=== PATIENT | male | born 1950 | race Caucasian/White ===

== ENCOUNTER 2020-06-20 13:55 | Inpatient (IN) | payer MEDICAID ==
[~2020-06-20] VITALS: Ht 170.2 cm; Wt 52.2 kg
--- NOTE | 2020-06-20 13:55 | NUR ---
PT BIBRA 60 FROM 4 SEASONS C/O WEAKNESS AND FAILURE TO THRIVE FOR3 DAYS. PT IS AAOX3, NOT IN RESPIRATORY DISTRESS, HOOKED TO AUDIT LEAD, KEPT RESTED AND COMFORTABLE. WILL CONTINUE TO MONITOR.
--- NOTE | 2020-06-20 14:50 | NUR ---
IV LINE ESTABLISHED BLOOD DRAWN AND SENT TO LAB.
--- NOTE | 2020-06-20 15:02 | NUR ---
URINE SPECIMEN COLLECTED AND SENT TO LAB.
[2020-06-20 15:06] LABS: BASOPHILS % (AUTO) 0.4 % (0.0-2.0); EOSINOPHILS % (AUTO) 0.5 % (0.0-6.0); HEMATOCRIT 28 % (39-51); HEMOGLOBIN 8.5 g/dL (13.5-17.5); LYMPHOCYTES # (AUTO) 1.3 /CMM (0.8-4.8); LYMPHOCYTES % (AUTO) 11.8 % (20.0-44.0); MEAN CORPUSCULAR HGB CONC 31 g/dl (31.0-36.0); MEAN CORPUSCULAR VOLUME 74 fL (80-96); MONOCYTES # (AUTO) 0.9 /CMM (0.1-1.30); MONOCYTES % (AUTO) 8.1 % (2.0-12.0); NEUTROPHILS # (AUTO) 8.4 /CMM (1.8-8.9); NEUTROPHILS % (AUTO) 79.2 % (43.0-81.0); PLATELET COUNT (AUTO) 630 /CMM (150-450); RED BLOOD CELL COUNT(AUTO) 3.71 MIL/uL (4.5-6.0); WHITE BLOOD COUNT (AUTO) 10.6 K/uL (4.3-11.0)
[2020-06-20 15:06] LABS: BILIRUBIN,URINE Negative (NEGATIVE); COLOR,URINE YELLOW (YELLOW); LEUKOCYTE ESTERASE ,URINE Large (NEGATIVE); NITRITE, URINE Positive (NEGATIVE); PH,URINE 5.5 (5.0-8.0); PROTEIN,URINE 30 mg/dl (NEGATIVE); UGLUCOSE Negative (NEGATIVE); UROBILINOGEN,URINE 0.2 EU/dL (0.2)
[2020-06-20 15:16] LABS: BACTERIA,URINE Moderate /HPF (None Seen); SQUAMOUS EPITHELIAL CELL,UR 0-2 /HPF (None Seen); WBC,URINE TOO NUMEROUS TO COUN /HPF (0-3)
[2020-06-20 15:19] LABS: ALANINE AMINOTRANSFERASE 18 U/L (12-78); ALBUMIN 2.2 g/dL (3.4-5.0); ALKALINE PHOSPHATASE 136 U/L (46-116); ASPARTATE AMINOTRANSFERASE 39 U/L (15-37); BILIRUBIN,DIRECT 0.2 mg/dL (0.0-0.2); BILIRUBIN,TOTAL 0.5 mg/dL (0.2-1.0); CALCIUM, SERUM 10.6 mg/dL (8.5-10.1); CARBON DIOXIDE 26 mmol/L (21-32); CHLORIDE 96 mmol/L (98-107); GLUCOSE 98 mg/dL (74-106); SODIUM SERUM 132 mmol/L (136-145); TOTAL PROTEIN, SERUM 9.6 g/dL (6.4-8.2); UREA NITROGEN, BLOOD 45 mg/dL (7-18)
[2020-06-20 15:20] LABS: CALCIUM OXALATE CRYSTALS,UR Rare /HPF (None Seen)
[2020-06-20 15:48] LABS: BILIRUBIN,URINE Negative (NEGATIVE); COLOR,URINE DARK YELLOW (YELLOW); LEUKOCYTE ESTERASE ,URINE Small (NEGATIVE); NITRITE, URINE Negative (NEGATIVE); PH,URINE 5.5 (5.0-8.0); PROTEIN,URINE 30 mg/dl (NEGATIVE); UGLUCOSE Negative (NEGATIVE); UROBILINOGEN,URINE 0.2 EU/dL (0.2)
[2020-06-20 15:57] LABS: BACTERIA,URINE Few /HPF (None Seen); SQUAMOUS EPITHELIAL CELL,UR Few /HPF (None Seen); WBC,URINE 21-50 /HPF (0-3); YEAST,URINE Few /HPF (None Seen)
[2020-06-20] MEDS ORDERED: IV NS 0.9% 1,000 ML BAG IV ONE (16:00)
[2020-06-20] MEDS ORDERED: MEROPENEM 1,000 MG in IV NS 0.9% 100 ML IV ONE (16:00)
[2020-06-20] MEDS ORDERED: SENN-261 PO (16:03)
[2020-06-20] MEDS ORDERED: TRAM50TA2 PO (16:03)
[2020-06-20] MEDS ORDERED: BACL10TA PO (16:03)
[2020-06-20] MEDS ORDERED: ACET-2605 PO (16:03)
[2020-06-20] MEDS ORDERED: ASCO-352 PO (16:03)
[2020-06-20] MEDS ORDERED: FERR325T23 PO (16:03)
[2020-06-20] MEDS ORDERED: GABA-532 PO (16:03)
[2020-06-20] MEDS ORDERED: AMIN30LI2 PO (16:03)
[2020-06-20] MEDS ORDERED: BISA10SU11 RC (16:03)
[2020-06-20] MEDS ORDERED: ATOR40TA PO (16:03)
[2020-06-20] MEDS ORDERED: MULT-447 PO (16:03)
[2020-06-20] MEDS ORDERED: MAGN400O6 PO (16:03)
[2020-06-20] MEDS ORDERED: MIDO10TA PO (16:03)
[2020-06-20] MEDS ORDERED: ACET-868 PO (16:03)
[2020-06-20] MEDS ORDERED: MELA3TAB41 PO (16:03)
[2020-06-20] MEDS ORDERED: NA P133E RC (16:03)
[2020-06-20] MEDS ORDERED: PANT40TA2 PO (16:03)
[2020-06-20] MEDS ORDERED: CRAN450C PO (16:03)
[2020-06-20] MEDS ORDERED: COLL30OI TP (16:09)
[2020-06-20] MEDS ORDERED: GENT3.5O4 TD (16:09)
--- NOTE | 2020-06-20 16:56 | NUR ---
Received bed number 115-1.
--- NOTE | 2020-06-20 17:08 | NUR ---
REPORT GIVEN TO LACIE HOLLINGSWORTH FOR CARL.
--- NOTE | 2020-06-20 17:08 | NUR ---
WITH ONGOING NORMAL SALINE 1L TRANSFUSING WELL.
[2020-06-20 17:30] VITALS: BP 124/84
[2020-06-20] MEDS ORDERED: MAGNESIUM HYDROXIDE 30 ML UDC PO PRN (17:30)
[2020-06-20] MEDS ORDERED: ONDANSETRON HCL/PF 4 MG/2 ML VIAL IVP PRN (17:30)
[2020-06-20] MEDS ORDERED: MAG HYDROX/AL HYDROX/SIMETH 30 ML UDC PO PRN (17:30)
[2020-06-20] MEDS ORDERED: Z GUARD REMEDY 2 OZ OINT TP PRN (17:30)
[2020-06-20] MEDS ORDERED: IV NS 0.9% 1,000 ML IV ONE (17:30)
[2020-06-20] MEDS ORDERED: HYDROCODONE/APAP 5/325MG TABLET PO PRN (17:30)
[2020-06-20] MEDS ORDERED: ZOLPIDEM TARTRATE 5 MG TABLET PO PRN (17:30)
[2020-06-20] MEDS ORDERED: BACLOFEN (10 MG) 10 MG TABLET PO PRN (17:30)
--- NOTE | 2020-06-20 17:30 | NUR ---
BULL FLOAT FINISHER NOTE RECEIVED PATIENT FROM LACIE MATTHEWS. WILL CONTINUE TO MONITOR FOR REMAINDER OF SHIFT.
[2020-06-20] MEDS: AZITHROMYCIN 500 MG in IV D5W 250 ML IV SCH (18:32)
[2020-06-20] MEDS: ENOXAPARIN SODIUM 40 MG/0.4 ML DISP.SYRIN SQ SCH (18:33)
--- NOTE | 2020-06-20 19:26 | NUR ---
RN CLOSING NOTE PATIENT IS IN BED WITH HOB AT SEMI FOWLERS POSITION. PATIENT IS AOX1-2. CURRENTLY ON ROOM AIR NO SIGNS OF LABORED BREATHING. CURRENTLY TACHY ON MONITOR 130S. SACRAL STAGE 4, R ANKLE ULCER, LEFT ANKLE ULCER, LEFT FOOT SKIN TEAR HAVE ALL BEEN NOTED AND HAD PICTURES TAKEN FOR CHART. RAC #[id number] IS PATENT, INTACT, AND HAS NO SIGNS OF INFILTRATION. [place] IS IN PLACE WITH CLOUDY URINE NOTED. BED IS LOCKED IN THE LOWEST POSITION, 3 GUARD RAILS RAISED, CALL GORDILLO WITHIN REACH, AND ALL HOSPITAL SAFETY PRECAUTIONS ARE BEING FOLLOWED. WILL ENDORSE TO SPECIALIZED DEVELOPER RN.
[2020-06-20 20:00] VITALS: BP 97/63
[2020-06-20] MEDS ORDERED: VANCOMYCIN 1 GM in IV D5W 250 ML IV SCH (20:00)
--- NOTE | 2020-06-20 20:30 | NUR ---
RN OPENING NOTE RECEIVED PATIENT IN BED RESTING ALERT ORIENTED X2 VERBALLY RESPONSIVE ON ROOM AIR O2:96% TACHYCARDIA HR: 131-[address] URINE CLOUDY AND YELLOW RUNNING BY GRAVITY,IV SITE IS ON RIGHT FOREARM AND RIGHT AC INTACT PATENT BED IN LOW POSITION AND LOCKED,CALL LIGHT WITHIN REACH,SAFETY MEASURE IMPLEMENT CONTINUE TO MONITOR
[2020-06-20] MEDS: ATORVASTATIN 40 MG TABLET PO SCH (21:09)
[2020-06-20] MEDS: IV NS 0.9% 1,000 ML IV PRN (21:20)
--- NOTE | 2020-06-20 22:00 | NUR ---
RN NOTE HR 131-135 AND LACTIC ACID IS 3.[address] LANGE MADE AWARE NO NEW ORDER CONTINUE TO MONITOR
[2020-06-20] MEDS: MEROPENEM 1 G in IV NS 0.9% 100 ML IV SCH (22:18)
[2020-06-21] VITALS: BP 106/67
[2020-06-21 04:00] VITALS: BP 91/52
[2020-06-21] MEDS: MEROPENEM 1 G in IV NS 0.9% 100 ML IV SCH ×3 (04:08→20:19)
[2020-06-21 05:58] LABS: BASOPHILS # (AUTO) 0.1 /CMM (0.0-0.2); BASOPHILS % (AUTO) 0.9 % (0.0-2.0); EOSINOPHILS % (AUTO) 0.9 % (0.0-6.0); HEMATOCRIT 24 % (39-51); HEMOGLOBIN 7.5 g/dL (13.5-17.5); LYMPHOCYTES # (AUTO) 0.9 /CMM (0.8-4.8); LYMPHOCYTES % (AUTO) 11.8 % (20.0-44.0); MEAN CORPUSCULAR HGB CONC 32 g/dl (31.0-36.0); MEAN CORPUSCULAR VOLUME 73 fL (80-96); MONOCYTES # (AUTO) 0.6 /CMM (0.1-1.30); MONOCYTES % (AUTO) 8.5 % (2.0-12.0); NEUTROPHILS # (AUTO) 5.6 /CMM (1.8-8.9); NEUTROPHILS % (AUTO) 77.9 % (43.0-81.0); PLATELET COUNT (AUTO) 457 /CMM (150-450); RED BLOOD CELL COUNT(AUTO) 3.25 MIL/uL (4.5-6.0); WHITE BLOOD COUNT (AUTO) 7.2 K/uL (4.3-11.0)
[2020-06-21 06:18] LABS: CALCIUM, SERUM 9.2 mg/dL (8.5-10.1); CREATININE 0.7 mg/dL (0.6-1.3); MAGNESIUM 1.8 mg/dL (1.8-2.4)
--- NOTE | 2020-06-21 06:45 | NUR ---
RN CLOSING NOTE PATIENT REMAINS ON ALERT ORIENTED X2 VERBALLY RESPONSIVE ON ROOM AIR O2:99% NO SOB NOT ACUTE DISTRESS NOTED,IV SITE IS ON RIGHT FOREARM AND RIGHT AC INTACT PATENT ON IV HYDRATION NORMAL SALINE 0.9% 75CC/HR [place] CATHETER IN PLACE URINE DRAINING YELLOW/CLOUDY,AL DUE MEDS GIVEN MD ORDERED,KEPT CLEAN AND DRY ALL THE TIME,KEPT COMFORTABLE ALL NEEDS MET,ENDORSE NEXT COMING SHIFT FOR CONTINUATION OF CARE.
[2020-06-21 07:25] LABS: POTASSIUM 3.5 mmol/L (3.5-5.1)
[2020-06-21 08:00] VITALS: BP 92/62
[2020-06-21] MEDS: GABAPENTIN 300 MG CAPSULE PO SCH ×2 (08:46→16:22)
[2020-06-21] MEDS: FERROUS SULFATE (325 MG) 325 MG/TAB TABLET PO SCH (08:46)
[2020-06-21] MEDS: PANTOPRAZOLE 40 MG TABLET.DR PO SCH (08:46)
[2020-06-21] MEDS: THERAHONEY GEL 1.5 OZ TUBE TP SCH (08:47)
[2020-06-21] MEDS: ASCORBIC ACID 500 MG TABLET PO SCH (08:47)
[2020-06-21] MEDS: PROSOURCE / PROSTAT (PYXIS) 30 ML UDC PO SCH ×2 (08:47→16:24)
[2020-06-21] MEDS: MULTIVIT W/MINERALS 1 TAB TABLET PO SCH (08:47)
[2020-06-21] MEDS: MIDODRINE HCL (5MG) 5 MG TABLET PO SCH ×2 (08:49→16:24)
[2020-06-21] MEDS: VANCOMYCIN HCL 0.75 GM in IV D5W 250 ML IV SCH ×2 (09:04→19:38)
[2020-06-21 11:27] LABS: LYMPHOCYTES % (MANUAL) 13 % (16-48); MONOCYTES % (MANUAL) 5 % (0-11.0); NEUTROPHILS % (MANUAL) 82 (42-76)
[2020-06-21] MEDS: IV NS 0.9% 1,000 ML IV PRN (14:24)
[2020-06-21] MEDS ORDERED: IV NS 0.9% 250 ML IV ONE (15:21)
[2020-06-21] MEDS ORDERED: IOHEXOL-300 100 ML VIAL IV ONE (15:21)
--- NOTE | 2020-06-21 15:36 | NUR ---
PATIENT TRANSPORTED TO CT FOR CT CHEST WITH CONTRAST. PATIENT COVID PCR TEST STILL PENDING, CT NOTIFIED AND AWARE.
[2020-06-21 16:00] VITALS: BP 98/63
--- NOTE | 2020-06-21 17:24 | NUR ---
PER ORACLE FINANCIAL APPLICATION DEVELOPER, PATIENT'S SNF CONSIDERING PEG PLACEMENT HERE AT HOSPITAL, OR HOSPICE CARE DEPENDING ON THE STATUS OF THE PATIENT. PATIENT AT BASELINE IN SNF AOX3-4, NOW CURRENTLY AO X 1-2. PER ORACLE FINANCIAL APPLICATION DEVELOPER, PATIENT HAS NO POINT OF CONTACT, AND IS SELF-RESPONSIBLE. WILL ENDORSE TO ONCOMING RN TO RELAY TO MD IN THE AM.
[2020-06-21] MEDS: ENSURE ENLIVE 237 ML LIQUID (VANILLA) PO SCH (17:38)
[2020-06-21] MEDS: AZITHROMYCIN 500 MG in IV D5W 250 ML IV SCH (17:38)
--- NOTE | 2020-06-21 18:06 | NUR ---
LAB CALLED TO NOTIFY OF PCR POSITIVE RESULT. RESULT RELAYED TO MD PIMENTEL, ALONG WITH RESULTED CT CHEST WITH IV CONTRAST REPORT, AND CASE MANAGEMENT REPORT OF POSSIBLE PEG/HOSPICE CONSIDERATION.
--- NOTE | 2020-06-21 18:33 | NUR ---
PATIENT REMAINS IN BED, NO ACUTE CHANGES. ALL SAFETY MEASURES IN PLACE, WOUND CARE COMPLETED, PENDING WOUND CONSULT. PATIENT CONSUMED APPROXIMATELY 50% OF MEALS THIS SHIFT. WILL ENDORSE ALL NEEDS TO ONCOMING RN
--- NOTE | 2020-06-21 19:00 | NUR ---
RN OPENING NOTE RECEIVED PATIENT IN BED RESTING ALERT ORIENTED X2 VERBALLY RESPONSIVE NO SOB NOT ACUTE DISTRESS NOTED ON ROOM AIR O2:96% D[place] IN PLACE URINE DRAINING YELLOW/CLOUDY IV SITE IS ON RIGHT FOREARM AND RIGHT AC INTACT PATENT IV HYDRATION NS O.9% RUNNING @ 75CC/HR,BED IN LOW POSITON AND LOCKED,SAFETY MEASURE IMPLEMENT,CONTINUE TO MONITOR.
--- NOTE | 2020-06-21 19:40 | NUR ---
RN NOTE RECEIVED CALL FROM LAB PATIENT IS GRAM POSITIVE COCCI IN CLUSTER,NOTIFIED MD CONTINUE TO MONITOR.
[2020-06-21 20:00] VITALS: BP 98/58
[2020-06-21] MEDS: ENOXAPARIN SODIUM 40 MG/0.4 ML DISP.SYRIN SQ SCH (20:20)
[2020-06-21] MEDS: ATORVASTATIN 40 MG TABLET PO SCH (21:01)
[2020-06-22] VITALS: BP 99/60
[2020-06-22] MEDS: IV NS 0.9% 1,000 ML IV PRN ×2 (03:06→21:03)
[2020-06-22 04:00] VITALS: BP 97/55
[2020-06-22] MEDS: MEROPENEM 1 G in IV NS 0.9% 100 ML IV SCH ×3 (04:07→21:04)
[2020-06-22 06:23] LABS: BASOPHILS % (AUTO) 0.4 % (0.0-2.0); EOSINOPHILS % (AUTO) 1.8 % (0.0-6.0); LYMPHOCYTES % (AUTO) 16.6 % (20.0-44.0); MEAN CORPUSCULAR HGB CONC 31 g/dl (31.0-36.0); MEAN CORPUSCULAR VOLUME 74 fL (80-96); MONOCYTES # (AUTO) 0.5 /CMM (0.1-1.30); MONOCYTES % (AUTO) 8.9 % (2.0-12.0); NEUTROPHILS # (AUTO) 4.3 /CMM (1.8-8.9); NEUTROPHILS % (AUTO) 72.3 % (43.0-81.0); PLATELET COUNT (AUTO) 383 /CMM (150-450); RED BLOOD CELL COUNT(AUTO) 2.75 MIL/uL (4.5-6.0); WHITE BLOOD COUNT (AUTO) 5.9 K/uL (4.3-11.0)
[2020-06-22 06:50] LABS: BILIRUBIN,TOTAL 0.4 mg/dL (0.2-1.0); CALCIUM, SERUM 8.6 mg/dL (8.5-10.1); CREATININE 0.5 mg/dL (0.6-1.3); MAGNESIUM 1.4 mg/dL (1.8-2.4); PHOSPHORUS 1.5 mg/dL (2.5-4.9); TOTAL PROTEIN, SERUM 6.3 g/dL (6.4-8.2)
--- NOTE | 2020-06-22 06:50 | NUR ---
RN NOTE RECEIVED CRITICAL LAB RESULTS POSASSUIM 2.7 AND ALBUMIN 1.[address] BARBER MADE AWARE CONTINUE TO MONITOR.
--- NOTE | 2020-06-22 06:52 | NUR ---
RN NOTE FOR CRITICAL LAB RESULTS POTASSIUM 2.7 AND ALBUMIN 1.4 ENDORSE MORNING SHIFT FOR FOLLOW UP.
[2020-06-22 06:57] LABS: POTASSIUM 2.7 mmol/L (3.5-5.1)
[2020-06-22 06:58] LABS: ALBUMIN 1.4 g/dL (3.4-5.0)
--- NOTE | 2020-06-22 07:01 | NUR ---
RN CLOSING NOTE PATIENT REMAINS ON ALERT ORIENTED X2 VERBALLY RESPONSIVE ON ROOM AIR NO SOB NOT ACUTE DISTRESS NOTED,O2:99% IV SITE IS ON RIGHT FOREARM AND RIGHT AC INTACT PATENT [place] CATHETER IN PLACE,URINE DRAINING CLOUDY AND YELLOW,IV HYDRATION IS RUNNING NS 0.9% @ 75CC/HR ALL DUE MEDS GIVEN MD ORDERED KEPT CLEAN AND DRY ALL THE TIME,KEPT COMFORTABLE ALL NEEDS MET ENDORSE NEXT COMING SHIFT FOR CONTINUATION OF CARE.
[2020-06-22 07:26] LABS: HEMATOCRIT 20 % (39-51); HEMOGLOBIN 6.4 g/dL (13.5-17.5)
--- NOTE | 2020-06-22 07:35 | NUR ---
RN NOTE NOTIFIED DR. PIMENTEL OF CRITICAL LAB VALUES H/H 6.4/20, POTASSIUM 2.7, AND ALBUMIN 1.4.
--- NOTE | 2020-06-22 07:45 | NUR ---
RN OPENING NOTE PATIENT IS IN BED WITH HOB AT SEMI FOWLERS POSITION. PATIENT IS CURRENTLY ON ROOM AIR WITH NO SIGNS OF LABORED BREATHING. PATIENT IS AOX2. [place] CATHETER IS IN PLACE. SACRAL STAGE 4, L/R HEEL WOUNDS, AND LEFT LEG SKIN TEAR HAVE BEEN NOTED. R FOREARM AND RAC ARE PATENT, INTACT, AND HAVE NO SIGNS OF LABORED BREATHING. BED IS LOCKED IN THE LOWEST POSITION, 3 GUARD RAILS RAISED, CALL GORDILLO WITHIN REACH, AND ALL HOSPITAL SAFETY PRECAUTIONS ARE BEING FOLLOWED. WILL CONTINUE TO MONITOR THROUGHOUT SHIFT.
[2020-06-22 08:00] VITALS: BP 97/64
[2020-06-22] MEDS: PROSOURCE / PROSTAT (PYXIS) 30 ML UDC PO SCH ×2 (08:04→17:00)
[2020-06-22] MEDS: PANTOPRAZOLE 40 MG TABLET.DR PO SCH (08:04)
[2020-06-22] MEDS: ASCORBIC ACID 500 MG TABLET PO SCH (08:05)
[2020-06-22] MEDS: MIDODRINE HCL (5MG) 5 MG TABLET PO SCH ×2 (08:05→16:22)
[2020-06-22] MEDS: MULTIVIT W/MINERALS 1 TAB TABLET PO SCH (08:05)
[2020-06-22] MEDS: FERROUS SULFATE (325 MG) 325 MG/TAB TABLET PO SCH (08:05)
[2020-06-22] MEDS: ENSURE ENLIVE 237 ML LIQUID (VANILLA) PO SCH ×3 (08:06→16:22)
[2020-06-22] MEDS: GABAPENTIN 300 MG CAPSULE PO SCH ×2 (08:06→16:22)
[2020-06-22] MEDS: POTASSIUM CL. PREMIX PERIPHER. 50 ML IV SCH ×8 (08:06→18:45)
[2020-06-22] MEDS: THERAHONEY GEL 1.5 OZ TUBE TP SCH (09:00)
[2020-06-22 09:06] LABS: EOSINOPHILS % (MANUAL) 5 % (0-4); LYMPHOCYTES % (MANUAL) 19 % (16-48); MONOCYTES % (MANUAL) 8 % (0-11.0); NEUTROPHILS % (MANUAL) 68 (42-76)
--- NOTE | 2020-06-22 09:12 | NUR ---
WOUND CARE CONSULT: REVIEWED CHART, NURSING DOCUMENTATION AND PHOTOS WHICH INDICATE STAGE 4 SACRAL ULCER AND LOWER EXTREMITY WOUNDS, PRESENT ON ADMISSION. RECOMMEND SURGICAL AND DPM CONSULTS. DR HOFFMAN AND DR WATTS NOTIFIED OF CONSULT REQUESTS. RECOMMENDATIONS MADE FOR SKIN PROTECTION. DISCUSSED WITH NURSING STAFF. FIRST STEP LOW AIRLOSS MATTRESS IS ON ORDER. MD IN AGREEMENT WITH PLAN OF CARE.
[2020-06-22] MEDS: VANCOMYCIN HCL 0.75 GM in IV D5W 250 ML IV SCH ×2 (10:27→19:54)
[2020-06-22 11:10] LABS: HEMOGLOBIN 7.1 g/dL (13.5-17.5)
[2020-06-22] MEDS: Magnesium 1GM/D5W 100ML PREMIX 100 ML IV SCH ×4 (11:28→15:48)
[2020-06-22] MEDS ORDERED: K PHOS NEUTRAL 250 MG TABLET PO ONE (11:30)
[2020-06-22 12:00] VITALS: BP 85/55
--- NOTE | 2020-06-22 13:16 | NUR ---
TELE NOTE PATIENT IS COMPLAINING OF BURNING AT IV SITE WITH POTASSIUM RUNNING. LOWERED RATE TO 25 ML/HR WILL CONTINUE TO MONITOR.
[2020-06-22 16:00] VITALS: BP 126/60
[2020-06-22 16:54] LABS: OCCULT BLOOD STOOL NEGATIVE (NEGATIVE)
[2020-06-22] MEDS: DAKINS QUARTER STRENGTH (0.125%) 480 ML BOTTLE TOP SCH (17:21)
[2020-06-22] MEDS: AZITHROMYCIN 500 MG in IV D5W 250 ML IV SCH (18:03)
--- NOTE | 2020-06-22 19:08 | NUR ---
RN CLOSING NOTE PATIENT IS IN BED WITH HOB AT SEMI FOWLERS POSITION. PATIENT IS CURRENTLY ON ROOM AIR WITH NO SIGNS OF LABORED BREATHING. PATIENT IS AOX2. [place] CATHETER IS IN PLACE. SACRAL STAGE 4, L/R HEEL WOUNDS, AND LEFT LEG SKIN TEAR HAVE BEEN NOTED. R FOREARM AND RAC ARE PATENT, INTACT, AND HAVE NO SIGNS OF LABORED BREATHING. ALL ASSIGNED MEDS GIVEN AND PATIENT REMAINED STABLE THROUGHOUT SHIFT. BED IS LOCKED IN THE LOWEST POSITION, 3 GUARD RAILS RAISED, CALL GORDILLO WITHIN REACH, AND ALL HOSPITAL SAFETY PRECAUTIONS ARE BEING FOLLOWED. WILL ENDORSE TO COMPOUNDER FLAVORINGS RN.
[2020-06-22 20:00] VITALS: BP 121/66
--- NOTE | 2020-06-22 20:00 | NUR ---
RN NOTE RECEIVED PT IN BED A/O X2, PT IS ON RA SATING 99%, PT HAS UNLABORED BREATHING, SAFETY MEASURES IN PLACE.
[2020-06-22] MEDS: ATORVASTATIN 40 MG TABLET PO SCH (21:18)
[2020-06-23] VITALS (9 sets, daily range): BP systolic 89–124; BP diastolic 50–81
[2020-06-23] MEDS: MEROPENEM 1 G in IV NS 0.9% 100 ML IV SCH ×3 (05:21→20:31)
[2020-06-23 07:04] LABS: CALCIUM, SERUM 7.8 mg/dL (8.5-10.1); CREATININE 0.4 mg/dL (0.6-1.3); MAGNESIUM 1.6 mg/dL (1.8-2.4); PHOSPHORUS 1.4 mg/dL (2.5-4.9); POTASSIUM 3.3 mmol/L (3.5-5.1)
--- NOTE | 2020-06-23 07:29 | NUR ---
RN NOTE REPORT GIVEN TO ONCOMING SHIFT FOR CARL.
[2020-06-23 08:06] LABS: CREATININE KINASE (CK),MB 2.6 ng/mL (0.0-10.4); PTH, INTACT 17 pg/mL (15-65)
[2020-06-23 08:26] LABS: BASOPHILS # (AUTO) 0.1 /CMM (0.0-0.2); BASOPHILS % (AUTO) 1.1 % (0.0-2.0); EOSINOPHILS % (AUTO) 2.4 % (0.0-6.0); HEMATOCRIT 21 % (39-51); LYMPHOCYTES # (AUTO) 0.9 /CMM (0.8-4.8); LYMPHOCYTES % (AUTO) 17.5 % (20.0-44.0); MEAN CORPUSCULAR HGB CONC 32 g/dl (31.0-36.0); MEAN CORPUSCULAR VOLUME 73 fL (80-96); MONOCYTES # (AUTO) 0.6 /CMM (0.1-1.30); MONOCYTES % (AUTO) 12.2 % (2.0-12.0); NEUTROPHILS # (AUTO) 3.5 /CMM (1.8-8.9); NEUTROPHILS % (AUTO) 66.8 % (43.0-81.0); PLATELET COUNT (AUTO) 378 /CMM (150-450); RED BLOOD CELL COUNT(AUTO) 2.91 MIL/uL (4.5-6.0); WHITE BLOOD COUNT (AUTO) 5.2 K/uL (4.3-11.0)
[2020-06-23 08:29] LABS: HEMOGLOBIN 6.8 g/dL (13.5-17.5)
[2020-06-23] MEDS: THERAHONEY GEL 1.5 OZ TUBE TP SCH ×2 (08:56→09:00)
[2020-06-23] MEDS: MULTIVIT W/MINERALS 1 TAB TABLET PO SCH (08:57)
[2020-06-23] MEDS: ASCORBIC ACID 500 MG TABLET PO SCH (08:57)
[2020-06-23] MEDS: MIDODRINE HCL (5MG) 5 MG TABLET PO SCH ×2 (08:58→16:31)
[2020-06-23] MEDS: FERROUS SULFATE (325 MG) 325 MG/TAB TABLET PO SCH (08:58)
[2020-06-23] MEDS: ENSURE ENLIVE 237 ML LIQUID (VANILLA) PO SCH ×3 (08:59→17:14)
[2020-06-23] MEDS: GABAPENTIN 300 MG CAPSULE PO SCH ×2 (08:59→16:30)
[2020-06-23] MEDS: VANCOMYCIN HCL 0.75 GM in IV D5W 250 ML IV SCH ×2 (08:59→19:24)
[2020-06-23] MEDS: DAKINS QUARTER STRENGTH (0.125%) 480 ML BOTTLE TOP SCH (09:00)
[2020-06-23] MEDS: PANTOPRAZOLE 40 MG TABLET.DR PO SCH (09:03)
[2020-06-23] MEDS: PROSOURCE / PROSTAT (PYXIS) 30 ML UDC PO SCH ×2 (09:21→17:15)
[2020-06-23] MEDS ORDERED: K PHOS NEUTRAL 250 MG TABLET PO ONE (10:00)
[2020-06-23] MEDS ORDERED: POTASSIUM CHLORIDE 20 MEQ POWDER PACKET PO ONE (10:00)
[2020-06-23 10:07] LABS: *SPE A/G RATIO 0.4 (0.7-1.7); *SPE ALBUMIN 1.6 g/dL (2.9-4.4); *SPE ALPHA-1-GLOBULIN 0.4 g/dL (0.0-0.4); *SPE GLOBULIN, TOTAL 4.1 g/dL (2.2-3.9); *SPE M-SPIKE Not Observed g/dL (Not Observed); *SPEGAMMA GLOBULIN 1.7 g/dL (0.4-1.8)
[2020-06-23] MEDS: Magnesium 1GM/D5W 100ML PREMIX 100 ML IV SCH ×2 (10:33→11:47)
[2020-06-23] MEDS: ACETAMINOPHEN 325 MG TABLET PO PRN (12:15)
--- NOTE | 2020-06-23 15:07 | NUR ---
RN NOTE BLOOD TRANSFUSION STARTED @ 1432, PATIENT EDUCATED ON S/S TO REPORT WITH VOICED UNDERSTANDING. 20MIN AT BEDSIDE DURING INITIATION WITH NO ADVERSE REACTIONS NOTED. DRESSING CHANGE COMPLETED TO ARIEL FEET/ANKLE AND BUTTOCKS. CALL LIGHT WITHIN REACH. WILL CONTINUE TO MONITOR.
[2020-06-23] MEDS: TRAMADOL HCL 50 MG TABLET PO PRN (16:37)
[2020-06-23] MEDS: AZITHROMYCIN 500 MG in IV D5W 250 ML IV SCH (17:15)
--- NOTE | 2020-06-23 17:30 | NUR ---
RN NOTE TRANSFUSION COMPLETE AT THIS TIME, NO ADVERSE REACTIONS NOTED. PATIENT SITTING UPRIGHT IN BED, AAOX2, ASSISTED WITH DINNER. NO ACUTE DISTRESS NOTED. BED IN LOW POSITION/LOCKED. CALL LIGHT AND PERSONAL ITEMS WITHIN REACH. DALLAS TO BEDSIDE DRAINAGE WITH CLEAR YELLOW URINE NOTED. MONITORING ONGOING.
--- NOTE | 2020-06-23 19:10 | NUR ---
RN NOTE RECEIVED PT AWAKE AND ALERT AND ORIENTED X 2. IN HIGH RENE'S POSITION. ON ROOM AIR, RESPIRATIONS UNLABORED, DENIES PAIN OR DISCOMFORT AT THIS TIME. [place] CATHETER PATENT AND IN PLACE DRAINING URINE VIA GRAVITY. WITH RIGHT UPPER ARM MIDLINE AAND RIGHT FOREARM IV PATENT AND FLUSHING WELL WITHOUT COMPLICATIONS AT SITES. WITH NS @ 75ML/HOUR RUNNING ORDERED. PLAN OF CARE DISCUSSED, CALL LIGHT WITHIN REACH, SAFETY MEASURES IN PLACE PER PROTOCOL, BED LOCKED AND IN LOW POSITION, SIDE RAILS UP X 2, BED ALARM ON, WILL MONITOR AND CARRY OUT ACTIVE MD ORDERS.
[2020-06-23] MEDS: IV NS 0.9% 1,000 ML IV PRN (19:23)
[2020-06-23] MEDS: ATORVASTATIN 40 MG TABLET PO SCH (21:47)
[2020-06-24] MEDS: TRAMADOL HCL 50 MG TABLET PO PRN ×2 (02:02→17:50)
[2020-06-24 04:00] VITALS: BP 156/91
--- NOTE | 2020-06-24 04:00 | NUR ---
RN NOTE PT REFUSED BED BATH TODAY BUT ALLOWED FOR PARTIAL LINEN CHANGE, ORAL CARE AND TO BE REPOSITIONED.
[2020-06-24] MEDS: MEROPENEM 1 G in IV NS 0.9% 100 ML IV SCH ×3 (05:09→21:55)
--- NOTE | 2020-06-24 06:53 | NUR ---
RN NOTE NO ACUTE CHANGES OBSERVED OVERNIGHT. PT RESTING IN BED IN SEMI RENE'S POSITION. ON ROOM AIR, IN NO APPARENT DISTRESS, D[place] CATHETER PATENT AND IN PLACE DRAINING URINE VIA GRAVITY. WITH RIGHT UPPER ARM MIDLINE AND RIGHT FOREARM IV PATENT AND FLUSHING WELL . WITH NS @ 75ML/HOUR RUNNING ORDERED. ALL NEEDS MET AND ATTENDED TO, CALL LIGHT WITHIN REACH, SAFETY MEASURES IN PLACE PER PROTOCOL, BED LOCKED AND IN LOW POSITION, SIDE RAILS UP X 2, BED ALARM ON, WILL ENDORSE TO MORNING RN FOR CARL.
[2020-06-24] MEDS: PANTOPRAZOLE 40 MG TABLET.DR PO SCH (07:27)
--- NOTE | 2020-06-24 07:45 | NUR ---
RN OPENING NOTE PATIENT IS CURRENTLY IN BED WITH HOB AT SEMI FOWLERS POSITION. PATIENT IS AOX1. CURRENTLY ON ROOM AIR WITH NO SIGNS OF LABORED BREATHING. [place] CATHETER IS IN PLACE. L ANKLE, R ANKLE, AND SACRAL WOUNDS HAVE BEEN NOTED. EUGENIO MIDLINE AND RFA ARE PATENT, INTACT, AND HAVE NO SIGNS OF INFILTRATION. BED IS LOCKED IN THE LOWEST POSITION, 3 GUARD RAILS RAISED, CALL GORDILLO WITHIN REACH, AND ALL HOSPITAL SAFETY PRECAUTIONS ARE BEING FOLLOWED. WILL CONTINUE TO MONITOR THROUGHOUT SHIFT.
[2020-06-24 08:00] VITALS: BP 122/76
[2020-06-24] MEDS: ENSURE ENLIVE 237 ML LIQUID (VANILLA) PO SCH ×3 (08:00→17:39)
[2020-06-24 08:41] LABS: BASOPHILS # (AUTO) 0.1 /CMM (0.0-0.2); BASOPHILS % (AUTO) 1.1 % (0.0-2.0); EOSINOPHILS % (AUTO) 3.9 % (0.0-6.0); LYMPHOCYTES # (AUTO) 0.8 /CMM (0.8-4.8); LYMPHOCYTES % (AUTO) 17.1 % (20.0-44.0); MEAN CORPUSCULAR HGB CONC 32 g/dl (31.0-36.0); MEAN CORPUSCULAR VOLUME 76 fL (80-96); MONOCYTES # (AUTO) 0.6 /CMM (0.1-1.30); MONOCYTES % (AUTO) 12.4 % (2.0-12.0); NEUTROPHILS % (AUTO) 65.5 % (43.0-81.0); PLATELET COUNT (AUTO) 321 /CMM (150-450); RED BLOOD CELL COUNT(AUTO) 2.51 MIL/uL (4.5-6.0); WHITE BLOOD COUNT (AUTO) 4.7 K/uL (4.3-11.0)
[2020-06-24 08:48] LABS: CALCIUM, SERUM 7.3 mg/dL (8.5-10.1); CREATININE 0.4 mg/dL (0.6-1.3); MAGNESIUM 1.5 mg/dL (1.8-2.4); PHOSPHORUS 1.3 mg/dL (2.5-4.9); POTASSIUM 3.1 mmol/L (3.5-5.1)
[2020-06-24 08:51] LABS: HEMOGLOBIN 6.2 g/dL (13.5-17.5)
[2020-06-24 08:52] LABS: HEMATOCRIT 19 % (39-51)
[2020-06-24] MEDS: VANCOMYCIN HCL 0.75 GM in IV D5W 250 ML IV SCH ×2 (09:05→20:50)
[2020-06-24] MEDS: MULTIVIT W/MINERALS 1 TAB TABLET PO SCH (09:05)
[2020-06-24] MEDS: ASCORBIC ACID 500 MG TABLET PO SCH (09:05)
[2020-06-24] MEDS: MIDODRINE HCL (5MG) 5 MG TABLET PO SCH ×2 (09:05→17:38)
[2020-06-24] MEDS: POTASSIUM CL. PREMIX PERIPHER. 50 ML IV SCH ×3 (09:05→11:27)
[2020-06-24] MEDS: GABAPENTIN 300 MG CAPSULE PO SCH ×2 (09:06→17:37)
[2020-06-24] MEDS: FERROUS SULFATE (325 MG) 325 MG/TAB TABLET PO SCH (09:06)
[2020-06-24] MEDS: DAKINS QUARTER STRENGTH (0.125%) 480 ML BOTTLE TOP SCH (09:30)
[2020-06-24] MEDS: PROSOURCE / PROSTAT (PYXIS) 30 ML UDC PO SCH ×2 (09:31→17:39)
[2020-06-24] MEDS: THERAHONEY GEL 1.5 OZ TUBE TP SCH ×2 (09:31)
[2020-06-24] MEDS: Magnesium 1GM/D5W 100ML PREMIX 100 ML IV SCH ×4 (10:12→17:49)
[2020-06-24] MEDS: IV NS 0.9% 1,000 ML IV PRN (13:09)
--- NOTE | 2020-06-24 13:15 | NUR ---
RN NOTE TRANSFERRED PATIENT TO LACIE GIRON FOR CARL. PATIENT IS STABLE. ENDORSED ALL INFORMATION TO RN.
[2020-06-24] MEDS ORDERED: NEUTRA PHOS 1 POWD.PACKET PO ONE (15:30)
[2020-06-24 16:00] VITALS: BP 123/75
[2020-06-24] MEDS: AZITHROMYCIN 500 MG in IV D5W 250 ML IV SCH (17:39)
[2020-06-24 20:00] VITALS: BP 152/93
--- NOTE | 2020-06-24 20:25 | NUR ---
GEOVANNA/RN DURING INITIAL SHIFT ROUNDING, PATIENT WAS AWAKE, ALERT, ORIENTED X 3, COMFORTABLE, NO SIGNS OF DISTRESS NOTED, IVF INFUSING WELL, FALL PRECAUTIONS PER PROTOCOL, NEEDS ATTENDED, WILL MONITOR.
[2020-06-24] MEDS: ATORVASTATIN 40 MG TABLET PO SCH (22:00)
[2020-06-25] VITALS (8 sets, daily range): BP systolic 111–142; BP diastolic 70–96
--- NOTE | 2020-06-25 00:13 | NUR ---
GEOVANNA/RN PRBC UNIT 1 STARTED. WILL MONITOR PER PROTOCOL.
--- NOTE | 2020-06-25 03:34 | NUR ---
GEOVANNA/RN BLOOD TRANSFUSION FINISHED, PATIENT IS AFEBRILE, VITAL SIGNS STABLE, NO REACTIONS NOTED, WILL CONTINUE TO MONITOR.
--- NOTE | 2020-06-25 05:00 | NUR ---
GEOVANNA/RN MORNING CARE WAS DONE, TOTAL LINEN CHANGE DONE, WOUND CARE DONE ORDERED, BED BATH DONE, REPOSITIONED TO COMFORT, WILL CONTINUE TO MONITOR.
[2020-06-25] MEDS: MEROPENEM 1 G in IV NS 0.9% 100 ML IV SCH ×3 (05:11→20:22)
[2020-06-25 06:30] LABS: BASOPHILS # (AUTO) 0.1 /CMM (0.0-0.2); EOSINOPHILS % (AUTO) 4.2 % (0.0-6.0); HEMATOCRIT 31 % (39-51); HEMOGLOBIN 10.2 g/dL (13.5-17.5); LYMPHOCYTES % (AUTO) 15.1 % (20.0-44.0); MEAN CORPUSCULAR HGB CONC 33 g/dl (31.0-36.0); MEAN CORPUSCULAR VOLUME 79 fL (80-96); MONOCYTES # (AUTO) 0.8 /CMM (0.1-1.30); MONOCYTES % (AUTO) 12.1 % (2.0-12.0); NEUTROPHILS # (AUTO) 4.3 /CMM (1.8-8.9); NEUTROPHILS % (AUTO) 67.6 % (43.0-81.0); PLATELET COUNT (AUTO) 400 /CMM (150-450); RED BLOOD CELL COUNT(AUTO) 3.95 MIL/uL (4.5-6.0); WHITE BLOOD COUNT (AUTO) 6.4 K/uL (4.3-11.0)
--- NOTE | 2020-06-25 06:31 | NUR ---
GEOVANNA/RN PATIENT APPEAR SLEEPING, APPEAR COMFORTABLE, NO SIGNS OF DISTRESS NOTED, ALL NEEDS ATTENDED AT THIS TIME, WILL CONTINUE TO MONITOR.
[2020-06-25 06:59] LABS: CALCIUM, SERUM 8.8 mg/dL (8.5-10.1); CREATININE 0.4 mg/dL (0.6-1.3); MAGNESIUM 1.9 mg/dL (1.8-2.4); PHOSPHORUS 1.9 mg/dL (2.5-4.9); POTASSIUM 3.9 mmol/L (3.5-5.1)
--- NOTE | 2020-06-25 07:50 | NUR ---
RN OPENING NOTES Patient is alert and oriented. Patient is breathing even and unlabored. No s/s of respiratory distress. Noted with right upper arm midline at 75ml/hour. Obn room air saturating 98%.Provided morning care and assisted with meal intake. Bed is in lowest and locked position. Call light within reach.
[2020-06-25] MEDS: PANTOPRAZOLE 40 MG TABLET.DR PO SCH (08:09)
[2020-06-25] MEDS: GABAPENTIN 300 MG CAPSULE PO SCH ×2 (08:09→17:20)
[2020-06-25] MEDS: MIDODRINE HCL (5MG) 5 MG TABLET PO SCH ×2 (08:09→17:20)
[2020-06-25] MEDS: ASCORBIC ACID 500 MG TABLET PO SCH (08:09)
[2020-06-25] MEDS: FERROUS SULFATE (325 MG) 325 MG/TAB TABLET PO SCH (08:09)
[2020-06-25] MEDS: MULTIVIT W/MINERALS 1 TAB TABLET PO SCH (08:09)
[2020-06-25] MEDS: VANCOMYCIN HCL 0.75 GM in IV D5W 250 ML IV SCH ×2 (08:10→20:52)
[2020-06-25] MEDS: PROSOURCE / PROSTAT (PYXIS) 30 ML UDC PO SCH ×2 (08:12→17:21)
[2020-06-25] MEDS: ENSURE ENLIVE 237 ML LIQUID (VANILLA) PO SCH ×3 (08:12→17:21)
[2020-06-25] MEDS: THERAHONEY GEL 1.5 OZ TUBE TP SCH ×2 (08:13)
[2020-06-25] MEDS: DAKINS QUARTER STRENGTH (0.125%) 480 ML BOTTLE TOP SCH (08:15)
[2020-06-25] MEDS ORDERED: NEUTRA PHOS 1 POWD.PACKET PO ONE (10:30)
[2020-06-25] MEDS: TRAMADOL HCL 50 MG TABLET PO PRN (15:08)
[2020-06-25] MEDS: IV NS 0.9% 1,000 ML IV PRN (17:51)
--- NOTE | 2020-06-25 19:08 | NUR ---
RN CLOSING NOTES Patient is alert and oriented. Patient is breathing even and unlabored. No s/s of respiratory distress. Noted with right upper arm midline at 75ml/hour. On room air saturating 99%. Patient noted with urine output of 2300 cc during shift and bm x1. Bed is in lowest and locked position.Wound care provided.Turned and repositioned q2h and prn. Call light within reach.Will endorse to next shift for CARL.
[2020-06-25] MEDS: ATORVASTATIN 40 MG TABLET PO SCH (21:00)
[2020-06-26 04:00] VITALS: BP 135/72
[2020-06-26] MEDS: MEROPENEM 1 G in IV NS 0.9% 100 ML IV SCH (05:11)
[2020-06-26 06:24] LABS: BASOPHILS # (AUTO) 0.1 /CMM (0.0-0.2); EOSINOPHILS % (AUTO) 3.3 % (0.0-6.0); HEMATOCRIT 29 % (39-51); HEMOGLOBIN 9.2 g/dL (13.5-17.5); MEAN CORPUSCULAR HGB CONC 32 g/dl (31.0-36.0); MEAN CORPUSCULAR VOLUME 78 fL (80-96); MONOCYTES # (AUTO) 0.7 /CMM (0.1-1.30); MONOCYTES % (AUTO) 11.8 % (2.0-12.0); NEUTROPHILS % (AUTO) 66.9 % (43.0-81.0); PLATELET COUNT (AUTO) 426 /CMM (150-450); RED BLOOD CELL COUNT(AUTO) 3.67 MIL/uL (4.5-6.0)
[2020-06-26 06:31] LABS: CREATININE 0.6 mg/dL (0.6-1.3); PHOSPHORUS 1.8 mg/dL (2.5-4.9); POTASSIUM 3.8 mmol/L (3.5-5.1)
--- NOTE | 2020-06-26 07:30 | NUR ---
RN OPENING NOTES Patient is alert and oriented. Patient is breathing even and unlabored. No s/s of respiratory distress. Noted with right upper arm midline at 75ml/hour. Obn room air saturating 96%. Bed is in lowest and locked position. Call light within reach.
[2020-06-26 08:00] VITALS: BP 126/72
[2020-06-26] MEDS: THERAHONEY GEL 1.5 OZ TUBE TP SCH ×2 (09:00→09:27)
[2020-06-26] MEDS: GABAPENTIN 300 MG CAPSULE PO SCH ×2 (09:19→17:33)
[2020-06-26] MEDS: MULTIVIT W/MINERALS 1 TAB TABLET PO SCH (09:19)
[2020-06-26] MEDS: FERROUS SULFATE (325 MG) 325 MG/TAB TABLET PO SCH (09:20)
[2020-06-26] MEDS: ASCORBIC ACID 500 MG TABLET PO SCH (09:20)
[2020-06-26] MEDS: PANTOPRAZOLE 40 MG TABLET.DR PO SCH (09:20)
[2020-06-26] MEDS: MIDODRINE HCL (5MG) 5 MG TABLET PO SCH ×2 (09:20→17:33)
[2020-06-26] MEDS: TRAMADOL HCL 50 MG TABLET PO PRN (09:20)
[2020-06-26] MEDS: VANCOMYCIN HCL 0.75 GM in IV D5W 250 ML IV SCH (09:25)
[2020-06-26] MEDS: PROSOURCE / PROSTAT (PYXIS) 30 ML UDC PO SCH ×2 (09:26→17:31)
[2020-06-26] MEDS: ENSURE ENLIVE 237 ML LIQUID (VANILLA) PO SCH ×3 (09:26→17:31)
[2020-06-26] MEDS: DAKINS QUARTER STRENGTH (0.125%) 480 ML BOTTLE TOP SCH (09:27)
[2020-06-26] MEDS ORDERED: K PHOS NEUTRAL 250 MG TABLET PO ONE (11:00)
[2020-06-26 12:00] VITALS: BP 137/65
[2020-06-26 16:00] VITALS: BP_SYST 116; BP_SYST 128; BP_DIAS 72; BP_DIAS 75
[2020-06-26] MEDS: VANCOMYCIN 1 GM in IV D5W 250 ML IV SCH (17:38)
--- NOTE | 2020-06-26 18:37 | NUR ---
RN CLOSING NOTES Patient is alert and oriented. Patient is breathing even and unlabored. No s/s of respiratory distress. Noted with right upper arm midline. On room air saturating 95%. Patient noted with urine output of 2000 cc during shift. Bed is in lowest and locked position. Wound care provided.Turned and repositioned q2h and prn. Call light within reach.Will endorse to next shift for CARL.
--- NOTE | 2020-06-26 19:20 | NUR ---
RN opening notes Received Pt from morning nurse. Pt is resting in bed comfortably. Pt is alert and orientedX3. Respiration on room air with O2 sat is 96%. No SOB. No S/S of distress noted. EUGENIO midline is clean, intact, flushes well and SL. Safety precautions is maintained. Bed at low position, brakes locked, side railsupX2, hob elevated and call light is within reach. Will continue to monitor.
[2020-06-26 20:00] VITALS: BP 143/69
[2020-06-26] MEDS: ATORVASTATIN 40 MG TABLET PO SCH (21:17)
[2020-06-27 04:00] VITALS: BP 101/69
[2020-06-27] MEDS: VANCOMYCIN 1 GM in IV D5W 250 ML IV SCH ×2 (05:04→17:23)
[2020-06-27 06:14] LABS: CALCIUM, SERUM 9.3 mg/dL (8.5-10.1); CREATININE 0.4 mg/dL (0.6-1.3); POTASSIUM 4.2 mmol/L (3.5-5.1)
[2020-06-27 06:28] LABS: BASOPHILS # (AUTO) 0.1 /CMM (0.0-0.2); EOSINOPHILS % (AUTO) 3.4 % (0.0-6.0); HEMATOCRIT 30 % (39-51); HEMOGLOBIN 9.4 g/dL (13.5-17.5); LYMPHOCYTES # (AUTO) 1.3 /CMM (0.8-4.8); LYMPHOCYTES % (AUTO) 19.9 % (20.0-44.0); MEAN CORPUSCULAR HGB CONC 32 g/dl (31.0-36.0); MEAN CORPUSCULAR VOLUME 78 fL (80-96); MONOCYTES # (AUTO) 0.7 /CMM (0.1-1.30); MONOCYTES % (AUTO) 11.3 % (2.0-12.0); NEUTROPHILS # (AUTO) 4.2 /CMM (1.8-8.9); NEUTROPHILS % (AUTO) 64.4 % (43.0-81.0); PLATELET COUNT (AUTO) 420 /CMM (150-450); WHITE BLOOD COUNT (AUTO) 6.6 K/uL (4.3-11.0)
--- NOTE | 2020-06-27 06:40 | NUR ---
RN closing notes Pt is resting in bed comfortably. Pt is alert and orientedX3. Respiration on room air with O2 sat is 99%. No SOB. No S/S of distress noted. VS is stable. Afebrile. Routine meds were given as ordered. EUGENIO midline is clean, intact, flushes well and SL. Wound care provided as ordered. Hall cath is intact and draining yellow urine 2800 ml. Kept Pt clean, dry and comfortable. Safety precautions is maintained. Bed at low position, brakes locked, side railsupX2, hob elevated and call light is within reach. Will endorse to morning nurse for CARL.
[2020-06-27] MEDS: GABAPENTIN 300 MG CAPSULE PO SCH ×2 (09:07→17:19)
[2020-06-27] MEDS: PANTOPRAZOLE 40 MG TABLET.DR PO SCH (09:07)
[2020-06-27] MEDS: MIDODRINE HCL (5MG) 5 MG TABLET PO SCH ×2 (09:07→17:19)
[2020-06-27] MEDS: ASCORBIC ACID 500 MG TABLET PO SCH (09:07)
[2020-06-27] MEDS: FERROUS SULFATE (325 MG) 325 MG/TAB TABLET PO SCH (09:08)
[2020-06-27] MEDS: PROSOURCE / PROSTAT (PYXIS) 30 ML UDC PO SCH ×2 (09:08→17:20)
[2020-06-27] MEDS: TRAMADOL HCL 50 MG TABLET PO PRN ×2 (09:08→17:19)
[2020-06-27] MEDS: MULTIVIT W/MINERALS 1 TAB TABLET PO SCH (09:08)
[2020-06-27] MEDS: ENSURE ENLIVE 237 ML LIQUID (VANILLA) PO SCH ×3 (09:09→17:20)
[2020-06-27] MEDS: THERAHONEY GEL 1.5 OZ TUBE TP SCH ×2 (09:09)
[2020-06-27] MEDS: DAKINS QUARTER STRENGTH (0.125%) 480 ML BOTTLE TOP SCH (09:09)
[2020-06-27] MEDS ORDERED: K PHOS NEUTRAL 250 MG TABLET PO ONE (13:30)
[2020-06-27 16:00] VITALS: BP 120/77
--- NOTE | 2020-06-27 18:13 | NUR ---
RN CLOSING NOTE Patient is A/O x3, in no acute distress, breathing is even and unlabored, saturating >95% on room air. IV line is clean and intact flushing well. PRN tramadol given for lower back pain. Skin protection measures implemented, wound care completed as ordered, patient turned and repositioned. Safety, aspiration precautions in place. Call light is within reach. Will endorse to shift supervisor rn for CARL.
--- NOTE | 2020-06-27 19:15 | NUR ---
RN opening notes Received Pt from morning nurse. Pt is laying in bed awake watching TV comfortably. Pt is alert and orientedX3. Respiration on room air with O2 sat is 99%. No SOB. No S/S of distress noted. EUGENIO midline is clean, intact, flushes well and SL. Hall cath is intact and draining yellow urine. Safety precautions is maintained. Bed at low position, brakes locked, side railsupX2, hob elevated and call light is within reach. Will continue to monitor.
[2020-06-27 20:00] VITALS: BP 148/94
[2020-06-27] MEDS: ATORVASTATIN 40 MG TABLET PO SCH (21:13)
--- NOTE | 2020-06-27 22:44 | NUR ---
RN closing notes Transferred continuity of care to LACIE Glasgow.
--- NOTE | 2020-06-27 22:50 | NUR ---
RN NOTES, RECEIVED PATIENT FROM ROBSON MEDELLIN FOR CONTINUATION OF CARE, NO SOB/ACUTE DISTRESS NOTED, WILL CONTINUE TO MONITOR CLOSELY.
[2020-06-28 04:00] VITALS: BP 134/87
[2020-06-28] MEDS: VANCOMYCIN 1 GM in IV D5W 250 ML IV SCH ×2 (05:16→17:17)
[2020-06-28 05:53] LABS: BASOPHILS # (AUTO) 0.1 /CMM (0.0-0.2); BASOPHILS % (AUTO) 0.9 % (0.0-2.0); EOSINOPHILS % (AUTO) 2.7 % (0.0-6.0); HEMATOCRIT 30 % (39-51); HEMOGLOBIN 9.7 g/dL (13.5-17.5); LYMPHOCYTES # (AUTO) 1.3 /CMM (0.8-4.8); LYMPHOCYTES % (AUTO) 15.8 % (20.0-44.0); MEAN CORPUSCULAR HGB CONC 32 g/dl (31.0-36.0); MEAN CORPUSCULAR VOLUME 78 fL (80-96); MONOCYTES # (AUTO) 0.8 /CMM (0.1-1.30); MONOCYTES % (AUTO) 9.2 % (2.0-12.0); NEUTROPHILS # (AUTO) 6.1 /CMM (1.8-8.9); NEUTROPHILS % (AUTO) 71.4 % (43.0-81.0); PLATELET COUNT (AUTO) 506 /CMM (150-450); RED BLOOD CELL COUNT(AUTO) 3.88 MIL/uL (4.5-6.0); WHITE BLOOD COUNT (AUTO) 8.5 K/uL (4.3-11.0)
[2020-06-28 06:07] LABS: CALCIUM, SERUM 8.8 mg/dL (8.5-10.1); CREATININE 0.4 mg/dL (0.6-1.3); PHOSPHORUS 2.4 mg/dL (2.5-4.9); POTASSIUM 4.4 mmol/L (3.5-5.1)
--- NOTE | 2020-06-28 07:30 | NUR ---
RN OPENING NOTE PT LAYING IN BED SEMIFOWLERS, A/Ox2 ON RA SPO2 97%, NO SIGNS OF RESP DISTRESS OR SOB. PT C/O LT ARM PAIN 12/23, WILL ADMIN PAIN MEDS ACCORDINGLY AND REASSESS. PT EUGENIO MIDLINE FLUSHED, PATENT WITH NO SIGNS OF INFILTRATION/INFECTION, OPEN TO TKO. PT HAS SACRAL AND BILAT ANKLE WOUNDS COVERED IN MEPILEX. PT DALLAS CATH PATENT, DRAINING CLEAR YELLOW URINE TO GRAVITY. ALL PT SAFETY PRECAUTIONS IN PLACE, WILL CONT TO MONITOR Addendum: 06/28/20 at 1030 by ALCIDES KHAN RN PT HAS SIGNIFICANT ATROPHY BILATERALLY TO UPPER AND LOWER EXTREMITIES
[2020-06-28 08:00] VITALS: BP 131/79
[2020-06-28] MEDS ORDERED: K PHOS NEUTRAL 250 MG TABLET PO ONE (08:00)
--- NOTE | 2020-06-28 08:00 | NUR ---
RN NOTE NOTIFIED COMMODITY SUPERVISOR FELIX OF PT'S BP 131/79 AND OK TO HOLD MIDODRINE 10MG
[2020-06-28] MEDS: ASCORBIC ACID 500 MG TABLET PO SCH (08:16)
[2020-06-28] MEDS: PANTOPRAZOLE 40 MG TABLET.DR PO SCH (08:16)
[2020-06-28] MEDS: GABAPENTIN 300 MG CAPSULE PO SCH ×2 (08:16→16:20)
[2020-06-28] MEDS: FERROUS SULFATE (325 MG) 325 MG/TAB TABLET PO SCH (08:19)
[2020-06-28] MEDS: MULTIVIT W/MINERALS 1 TAB TABLET PO SCH (08:19)
[2020-06-28] MEDS: ENSURE ENLIVE 237 ML LIQUID (VANILLA) PO SCH ×3 (08:20→17:17)
[2020-06-28] MEDS: TRAMADOL HCL 50 MG TABLET PO PRN (08:20)
[2020-06-28] MEDS: DAKINS QUARTER STRENGTH (0.125%) 480 ML BOTTLE TOP SCH (08:21)
[2020-06-28] MEDS: THERAHONEY GEL 1.5 OZ TUBE TP SCH ×2 (08:21)
[2020-06-28] MEDS: PROSOURCE / PROSTAT (PYXIS) 30 ML UDC PO SCH ×2 (08:21→17:17)
[2020-06-28] MEDS: MIDODRINE HCL (5MG) 5 MG TABLET PO SCH ×2 (08:22→17:00)
[2020-06-28 16:00] VITALS: BP 114/70
--- NOTE | 2020-06-28 18:45 | NUR ---
RN CLOSING NOTE NO CHANGES TO PT STATUS DURING SHIFT. PT ON RA SPO2 97% WITH NO SIGNS OF RESP DISTRESS OR SOB. ALL PT SAFETY PRECAUTIONS IN PLACE. WILL ENDORSE CARL TO ONCOMING RN
--- NOTE | 2020-06-28 19:02 | NUR ---
MS RN: CONTINUITY OF CARE Patient in bed, awake, A/O x3. Turned and repositioned, skin precaution maintained, offload extremities. Covid 19 PCR test position, remains on Contact/Droplet isolation, PPE utilized. Fall precaution maintained.
[2020-06-28 19:30] VITALS: BP 131/79
[2020-06-28 20:00] VITALS: BP 131/79
[2020-06-28] MEDS: ATORVASTATIN 40 MG TABLET PO SCH (22:08)
[2020-06-29] MEDS: VANCOMYCIN 1 GM in IV D5W 250 ML IV SCH (05:24)
[2020-06-29 05:46] VITALS: BP 111/73
[2020-06-29 06:31] LABS: BASOPHILS # (AUTO) 0.1 /CMM (0.0-0.2); BASOPHILS % (AUTO) 0.6 % (0.0-2.0); EOSINOPHILS % (AUTO) 2.1 % (0.0-6.0); HEMATOCRIT 32 % (39-51); HEMOGLOBIN 10.2 g/dL (13.5-17.5); LYMPHOCYTES % (AUTO) 10.1 % (20.0-44.0); MEAN CORPUSCULAR HGB CONC 32 g/dl (31.0-36.0); MEAN CORPUSCULAR VOLUME 80 fL (80-96); MONOCYTES # (AUTO) 0.8 /CMM (0.1-1.30); MONOCYTES % (AUTO) 8.4 % (2.0-12.0); NEUTROPHILS # (AUTO) 7.9 /CMM (1.8-8.9); NEUTROPHILS % (AUTO) 78.8 % (43.0-81.0); PLATELET COUNT (AUTO) 482 /CMM (150-450); RED BLOOD CELL COUNT(AUTO) 3.99 MIL/uL (4.5-6.0)
--- NOTE | 2020-06-29 06:36 | NUR ---
MS RN: END OF SHIFT REPORT On IV Vancomycin, afebrile. Turned and reposition, no c/o pain. Good urine output, no acute events overnight. Contact/Droplet isolation, PPE utilized. Fall precaution maintained.
[2020-06-29 07:09] LABS: ALBUMIN 1.6 g/dL (3.4-5.0); BILIRUBIN,TOTAL 0.4 mg/dL (0.2-1.0); CALCIUM, SERUM 9.4 mg/dL (8.5-10.1); CREATININE 0.5 mg/dL (0.6-1.3); MAGNESIUM 1.8 mg/dL (1.8-2.4); PHOSPHORUS 2.4 mg/dL (2.5-4.9); POTASSIUM 4.4 mmol/L (3.5-5.1); TOTAL PROTEIN, SERUM 7.8 g/dL (6.4-8.2)
--- NOTE | 2020-06-29 07:45 | NUR ---
RN OPENING NOTE PATIENT IS IN BED WITH HOB AT SEMI FOWLERS POSITION. PATIENT IS ON ROOM AIR WITH NO SIGNS OF LABORED BREATHING. CURRENTLY AOX1-2. [place] CATHETER IS IN PLACE. BLE WOUNDS AND SACRAL WOUND NOTED. EUGENIO MIDLINE IS PATENT, INTACT, AND HAS NO SIGNS OF INFILTRATION. BED IS LOCKED IN THE LOWEST POSITION, 3 GUARD RAILS RAISED, CALL GORDILLO WITHIN REACH, AND ALL HOSPITAL SAFETY PRECAUTIONS ARE BEING FOLLOWED. WILL CONTINUE TO MONITOR THROUGHOUT SHIFT.
[2020-06-29] MEDS: ENSURE ENLIVE 237 ML LIQUID (VANILLA) PO SCH ×2 (08:00→11:44)
[2020-06-29] MEDS: ASCORBIC ACID 500 MG TABLET PO SCH (08:05)
[2020-06-29] MEDS: MULTIVIT W/MINERALS 1 TAB TABLET PO SCH (08:05)
[2020-06-29] MEDS: PANTOPRAZOLE 40 MG TABLET.DR PO SCH (08:05)
[2020-06-29] MEDS: FERROUS SULFATE (325 MG) 325 MG/TAB TABLET PO SCH (08:05)
[2020-06-29] MEDS: ACETAMINOPHEN 325 MG TABLET PO PRN (08:06)
[2020-06-29] MEDS: MIDODRINE HCL (5MG) 5 MG TABLET PO SCH (08:06)
[2020-06-29] MEDS: GABAPENTIN 300 MG CAPSULE PO SCH (08:07)
[2020-06-29] MEDS: PROSOURCE / PROSTAT (PYXIS) 30 ML UDC PO SCH (08:08)
--- NOTE | 2020-06-29 09:00 | NUR ---
RN NOTE PATIENT EXHIBITING FEVER OF 101.4. ADMINISTERED ACETAMINOPHEN AND NOTIFIED MD. WILL CONTINUE TO MONITOR.
[2020-06-29] MEDS: DAKINS QUARTER STRENGTH (0.125%) 480 ML BOTTLE TOP SCH (09:31)
[2020-06-29] MEDS: THERAHONEY GEL 1.5 OZ TUBE TP SCH ×2 (09:31)
[2020-06-29 12:00] VITALS: BP 93/61
[2020-06-29] MEDS ORDERED: VANC1FRO2 IV (12:25)
[2020-06-29] MEDS ORDERED: K PHOS NEUTRAL 250 MG TABLET PO ONE (12:30)
--- NOTE | 2020-06-29 12:55 | NUR ---
RN NOTE PATIENT CAN NOT SWALLOW K PHOS TAB. NOTIFIED PHARMACY TO SWITCH TO PACKETS.
[2020-06-29] MEDS ORDERED: NEUTRA PHOS 1 POWD.PACKET PO ONE (13:00)
== END 2020-06-29 14:23 | DRG 720 ==
LOC: ER 13:55 → TELE1 17:00 → MEDSG1 06-21 08:04
PROVIDERS: ADMIT Nurse Practitioner Family; ATTEND Nurse Practitioner Acute Care
PROC: 05H533Z Insertion of Infusion Device into Right Subclavian Vein, Percutaneous Approach (ICD-10-PCS; 2020-06-22)
PROC: B546ZZA Ultrasonography of Right Subclavian Vein, Guidance (ICD-10-PCS; 2020-06-22)
PROC: 30233N1 Transfusion of Nonautologous Red Blood Cells into Peripheral Vein, Percutaneous Approach (ICD-10-PCS; principal; 2020-06-23)
DX: A41.02 Sepsis due to Methicillin resistant Staphylococcus aureus (principal); U07.1 COVID-19; E43 Unspecified severe protein-calorie malnutrition; G92 Toxic encephalopathy; N17.0 Acute kidney failure with tubular necrosis; I33.0 Acute and subacute infective endocarditis; D50.9 Iron deficiency anemia, unspecified; E78.5 Hyperlipidemia, unspecified; E86.0 Dehydration; E87.1 Hypo-osmolality and hyponatremia; I10 Essential (primary) hypertension; R62.7 Adult failure to thrive; E83.42 Hypomagnesemia; E83.52 Hypercalcemia; J18.9 Pneumonia, unspecified organism; E86.1 Hypovolemia; E87.2 Acidosis; J44.9 Chronic obstructive pulmonary disease, unspecified; K59.00 Constipation, unspecified; Z87.891 Personal history of nicotine dependence; R64 Cachexia; E88.09 Other disorders of plasma-protein metabolism, not elsewhere classified; D63.8 Anemia in other chronic diseases classified elsewhere; N13.9 Obstructive and reflux uropathy, unspecified; N13.6 Pyonephrosis; N40.1 Benign prostatic hyperplasia with lower urinary tract symptoms; L89.623 Pressure ulcer of left heel, stage 3; L89.523 Pressure ulcer of left ankle, stage 3; L89.154 Pressure ulcer of sacral region, stage 4; C34.12 Malignant neoplasm of upper lobe, left bronchus or lung; E87.6 Hypokalemia; Z68.1 Body mass index [BMI] 19.9 or less, adult
CPT/HCPCS: 36415; 70450-TC; 71045-TC; 71260-TC; 80048-TC; 80053-TC; 80061-TC; 80076-TC; 80202-TC; 81001; 82272-TC; 82550-TC; 82553; 82728-TC; 83540-TC; 83605-TC; 83735-TC; 83970; 84100-TC; 84155; 84165; 84300-TC; 84484-TC; 85025-TC; 85027-TC; 85378-TC; 85730-TC; 86140-TC; 86850-TC; 87040-TC; 87081-TC; 87086-TC; 92526; 92611-TC; 93307-TC; 97110-TC; 97530-TC; A6253; A6403; G0378; J0456; J1650; J2185; J3370; J3475; J3480; J7030; J7050; J7060; P9016-BL; Q9967; U0003